=== PATIENT | female | born 1955 | race Two or more races ===

== ENCOUNTER 2022-02-08 21:59 | Emergency (ER) | payer OTHER ==
[~2022-02-08] VITALS: Ht 170.2 cm; Wt 64.4 kg
[2022-02-08] MEDS ORDERED: LIPITOR (22:47)
[2022-02-08] MEDS ORDERED: ZYRTEC10 M3 (22:47)
[2022-02-08] MEDS ORDERED: [UNRECOGNIZED DRUG - OTHER] (22:48)
== END 2022-02-09 00:06 | disposition home or self-care (01) ==
LOC: ER 21:59
DX: S05.31XA Ocular laceration without prolapse or loss of intraocular tissue, right eye, initial encounter (principal); X58.XXXA Exposure to other specified factors, initial encounter; Y93.9 Activity, unspecified; Y92.9 Unspecified place or not applicable; Y99.9 Unspecified external cause status